=== PATIENT | male | born 1970 | race Caucasian/White ===

== ENCOUNTER 2023-02-06 10:41 | Outpatient (OUT) | payer OTHER, BC, SELFPAY ==
--- NOTE | 2023-02-06 10:57 | XR_ITS ---
The [address] [address] Patient Name: CHARLES MARISCAL MRN: [id number] date: 1970 Sex: M Assigned Patient Location: [facility] Current Patient Location: [facility] Accession/Order Number: [id number] Exam Date: 02/06/2023 11:02 Report Date: 02/06/2023 11:57 At the request of: NON-STAFF PHYSICIAN Procedure: XR knee LT 3V PROCEDURE: XR knee LT 3V HISTORY: Left Knee Fracture S82.002A COMPARISON: None. FINDINGS: BONES:Minimal narrowing of the medial joint space. No fracture, dislocation, or significant periarticular degenerative osteophytes. SOFT TISSUES:No visible soft tissue swelling. EFFUSION:None visible. OTHER: Negative. XR/XR knee LT 3V IMPRESSION: 1. No acute bone abnormality or joint effusion. 2. Minimal degenerative changes. Electronically authenticated by: MARYBEL LEW Date: 02/06/2023 11:57
== END 2023-02-06 10:42 | disposition home or self-care (01) ==
DX: S82.002A Unspecified fracture of left patella, initial encounter for closed fracture (principal); X58.XXXA Exposure to other specified factors, initial encounter; M17.12 Unilateral primary osteoarthritis, left knee
CPT/HCPCS: 73562